=== PATIENT | female | born 1965 | race Caucasian/White ===

== ENCOUNTER → 2021-11-15 | Outpatient (CLI) | payer OTHER ==
--- NOTE | 2021-11-15 15:08 | KCIC ---
MR CERVICAL SPINE WO History:Reason: NECK PAIN RIGHT SIDE / Spl. Instructions: / History: Right sided neck pain up into h ead for over one yr. NKI. Technique: Multiplanar, multi sequential noncontrast MR imaging was performed of the cervical spine. Comparison: None Findings: Right C2-C3 facet edema with mild perifacet edema. Right C2-C3 facet joint effusion. Normal vertebral body height and alignment. No fracture. No pathologic signal abnormality within the cervical spinal cord. C2-C3: Central disc protrusion. No canal or neuroforaminal narrowing. Mild facet arthropathy. C3-C4: Minimal disc bulge. No canal narrowing. Left uncovertebral bilateral facet arthropathy. Mild left neuroforaminal narrowing. C4-C5: Minimal disc bulge. No canal narrowing. Uncovertebral and facet arthropathy. Moderate bilater al neuroforaminal narrowing. C5-C6: Posterior disc osteophyte complex. Moderate canal narrowing. Cord flattening. Cord abutment. Uncovertebral and facet arthropathy. Severe bilateral neuroforaminal narrowing. C6-C7: Small posterior disc osteophyte complex. Mild canal narrowing. Uncovertebral and facet arthr opathy. Moderate to severe bilateral neuroforaminal narrowing. C7-T1: No canal narrowing. Facet arthropathy. Mild bilateral neuroforaminal narrowing. Upper thoracic facet arthropathy. Impression: 1. Right C2-C3 facet and perifacet edema with facet joint effusion, may relate to degenerative badillo es although can be seen with infectious or inflammatory fasciitis. Recommend further clinical evaluat ion and follow-up. 2. Multilevel cervical spondylosis most prominent C5-C6 and C6-C7. 3. C5-C6 moderate canal narrowing with cord flattening and cord abutment. 4. Mild C6-C7 canal narrowing. 5. Neuroforaminal narrowing most prominent C5-C6 and C6-C7. Electronically signed by: Leonardo Alarcon DO (11/15/2021 3:06 PM) [id number]
== END ==
LOC: KCIC MRI 12:22
DX: M47.24 Other spondylosis with radiculopathy, thoracic region (principal); M48.04 Spinal stenosis, thoracic region; M48.8X2 Other specified spondylopathies, cervical region; G03.8 Meningitis due to other specified causes; R60.0 Localized edema; M50.31 Other cervical disc degeneration, high cervical region
CPT/HCPCS: 72141